=== PATIENT | female | born 1980 | race Caucasian/White ===

== ENCOUNTER 2018-09-24 12:03 | Emergency (ER) | payer OTHER ==
[~2018-09-24 12:03] MED LIST: ACET-3143 FT; FERR27TA3 PO; HYOS0.1287 PO; IBU600 PO; IBU800 PO; KET10 PO; LEV175 PO; LEVO112T43 PO; LEVO137T22 PO; LEVO150T72 PO; LORA10CA3 PO; MULT1TAB64 PO; PER PO; PREN-67 PO; PROG100C PO; [UNRECOGNIZED DRUG - REMARK] PO
[2018-09-24] MEDS ORDERED: LEVO-3 PO (12:24)
--- NOTE | 2018-09-24 12:25 | ER Report ---
History and Physical Time Seen By MD: 12:25 Hx. of Stated Complaint: right knee pain for 3 weeks that has been worsening over the weekend. HPI/ROS CHIEF COMPLAINT: Right knee pain 3 weeks HISTORY OF PRESENT ILLNESS: Patient is a 37-year-old female here with complaints of medial knee swelling which is been persistent for the past several weeks. She has attempted to take NSAIDs without significant relief of pain. She also describes paresthesias distal to the edema however perfusion is intact with good capillary refill. Patient is able to bear weight without issue. She does complain of tenderness at the site but has full range of motion of the knee. Denies fevers, recent trauma. Patient is hemodynamically stable at time of evaluation, in no acute distress, afebrile. REVIEW OF SYSTEMS: Constitutional: No fever, no chills. Eyes: No discharge. ENT: No sore throat. Cardiovascular: No chest pain, no palpitations. Respiratory: No cough, no shortness of breath. Gastrointestinal: No abdominal pain, no vomiting. Genitourinary: No hematuria. Musculoskeletal: + Right medial knee swelling Skin: No rashes. Neurological: Neurovascular exam intact distal to the point of maximum tenderness Allergies: Coded Allergies: Penicillins (Verified Allergy, Intermediate, UNKNOWN, 08/17/10) azithromycin (Verified Allergy, Unknown, 12/15/12) dicyclomine (Verified Allergy, Unknown, 12/15/12) Home Meds Active Scripts Prednisone (PREDNISONE) 50 Mg Tablet, 50 MG PO QDAY for 5 Days, #5 TAB Prov:MACEY GTZ DO 09/24/18 Reported Medications Levothyroxine Sodium (LEVOTHYROXINE SODIUM) 100 Mcg Tablet, 175 MCG PO QDAY, TAB 09/24/18 Discontinued Reported Medications Levothyroxine Sodium (SYNTHROID) 150 Mcg Tablet, 150 MCG PO QODAY 02/19/16 Levothyroxine Sodium (SYNTHROID) 137 Mcg Tablet, 137 MCG PO QODAY 02/19/16 Loratadine (CLARITIN) 10 Mg Capsule, 10 MG PO QDAY, CAPSULE 02/19/16 Multivitamin (MULTI VITAMIN DAILY) 1 Each Tablet, 1 EACH PO QDAY 02/19/16 Progesterone,Micronized (PROGESTERONE) 100 Mg Capsule, 100 MG PO Q4M, CAPSULE 02/19/16 Hx Smoking: No Smoking Status: Former Smoker Exposure to Second Hand Smoke?: No Hx Substance Use Disorder: No Constitutional Vital Sign - Last 24 Hours 09/24/18 09/24/18 12:21 13:53 Temp 98.0 Pulse 60 58 Resp 20 20 B/P (MAP) 114/80 94/61 (72) Pulse Ox 94 94 O2 Delivery Room Air Physical Exam General Appearance: The patient is alert, has no immediate need for airway protection and no signs of toxicity. No acute distress Eyes: Pupils equal and round no pallor or injection. ENT, Mouth: Mucous membranes are moist. Respiratory: There are no retractions, lungs are clear to auscultation. Cardiovascular: Regular rate and rhythm. Gastrointestinal: Abdomen is soft and non tender, no masses, bowel sounds normal. Neurological: No focal neurological findings Skin: Warm and dry, no rashes. Musculoskeletal: Neck is supple non tender. + Tenderness and mild edema without erythema of the right medial knee with full range of motion of the knee DIFFERENTIAL DIAGNOSIS: After history and physical exam differential diagnosis was considered for DVT, bursitis, effusion, abscess Medical Decision Making Data Points Result Diagram: 09/24/18 1248 09/24/18 1248 Laboratory Hematology Test 09/24/18 12:48 Red Blood Count 4.73 M/uL (4.17-5.56) Mean Corpuscular Volume 95.8 fL (80.0-96.0) Mean Corpuscular Hemoglobin 31.5 pg (26.0-33.0) Mean Corpuscular Hemoglobin Concent 32.8 g/dL (32.0-36.0) Red Cell Distribution Width 12.3 % (11.5-14.5) Mean Platelet Volume 6.8 fL (7.2-11.1) Neutrophils (%) (Auto) 62.9 % (39.4-72.5) Lymphocytes (%) (Auto) 28.7 % (17.6-49.6) Monocytes (%) (Auto) 5.2 % (4.1-12.4) Eosinophils (%) (Auto) 1.8 % (0.4-6.7) Basophils (%) (Auto) 1.4 % (0.3-1.4) Nucleated RBC Relative Count (auto) 0.0 /100WBC Neutrophils # (Auto) 3.6 K/uL (2.0-7.4) Lymphocytes # (Auto) 1.6 K/uL (1.3-3.6) Monocytes # (Auto) 0.3 K/uL (0.3-1.0) Eosinophils # (Auto) 0.1 K/uL (0.0-0.5) Basophils # (Auto) 0.1 K/uL (0.0-0.1) Nucleated RBC Absolute Count (auto) 0.00 K/uL Erythrocyte Sedimentation Rate 1 mm/HOUR (0-20) D-Dimer Quantitative (PE/DVT) < 0.27 ug/ml (0-0.50) Sodium Level 139 mmol/L (137-145) Potassium Level 4.5 mmol/L (3.5-5.0) Chloride Level 106 mmol/L (98-107) Carbon Dioxide Level 27 mmol/L (22-31) Blood Urea Nitrogen 13 mg/dl (7-18) Creatinine 0.80 mg/dl (0.52-1.04) Glomerular Filtration Rate Calc > 60.0 Random Glucose 90 mg/dl (75-110) Calcium Level 9.2 mg/dl (8.4-10.2) Total Bilirubin 0.3 mg/dl (0.2-1.3) Aspartate Amino Transf (AST/SGOT) 20 U/L (0-35) Alanine Aminotransferase (ALT/SGPT) 28 U/L (0-56) Alkaline Phosphatase 30 U/L (0-126) C-Reactive Protein 0.6 mg/dl (<1.0) Total Protein 6.9 g/dl (6.3-8.2) Albumin 3.9 g/dl (3.5-5.0) Chemistry Test 09/24/18 12:48 White Blood Count 5.8 k/uL (4.5-11.0) Red Blood Count 4.73 M/uL (4.17-5.56) Hemoglobin 14.9 g/dL (12.0-16.0) Hematocrit 45.4 % (34.0-47.0) Mean Corpuscular Volume 95.8 fL (80.0-96.0) Mean Corpuscular Hemoglobin 31.5 pg (26.0-33.0) Mean Corpuscular Hemoglobin Concent 32.8 g/dL (32.0-36.0) Red Cell Distribution Width 12.3 % (11.5-14.5) Platelet Count 234 K/uL (150-450) Mean Platelet Volume 6.8 fL (7.2-11.1) Neutrophils (%) (Auto) 62.9 % (39.4-72.5) Lymphocytes (%) (Auto) 28.7 % (17.6-49.6) Monocytes (%) (Auto) 5.2 % (4.1-12.4) Eosinophils (%) (Auto) 1.8 % (0.4-6.7) Basophils (%) (Auto) 1.4 % (0.3-1.4) Nucleated RBC Relative Count (auto) 0.0 /100WBC Neutrophils # (Auto) 3.6 K/uL (2.0-7.4) Lymphocytes # (Auto) 1.6 K/uL (1.3-3.6) Monocytes # (Auto) 0.3 K/uL (0.3-1.0) Eosinophils # (Auto) 0.1 K/uL (0.0-0.5) Basophils # (Auto) 0.1 K/uL (0.0-0.1) Nucleated RBC Absolute Count (auto) 0.00 K/uL Erythrocyte Sedimentation Rate 1 mm/HOUR (0-20) D-Dimer Quantitative (PE/DVT) < 0.27 ug/ml (0-0.50) Glomerular Filtration Rate Calc > 60.0 Calcium Level 9.2 mg/dl (8.4-10.2) Total Bilirubin 0.3 mg/dl (0.2-1.3) Aspartate Amino Transf (AST/SGOT) 20 U/L (0-35) Alanine Aminotransferase (ALT/SGPT) 28 U/L (0-56) Alkaline Phosphatase 30 U/L (0-126) C-Reactive Protein 0.6 mg/dl (<1.0) Total Protein 6.9 g/dl (6.3-8.2) Albumin 3.9 g/dl (3.5-5.0) Coagulation Test 09/24/18 12:48 D-Dimer Quantitative (PE/DVT) < 0.27 ug/ml EKG/Imaging Imaging Location: [facility] - [place] Patient: Eusebia Hirsch : 1980 Visit/Account:[id number] Date of Sevdann: 09/24/2018 US VENOUS LOWER EXT RT HISTORY: Right-sided leg pain and swelling for 3 weeks. ADDITIONAL HISTORY: None. COMPARISON: None. FINDINGS: The right common femoral, femoral, and popliteal veins are fully compressible and patent. The paired veins of the calf are normal. IMPRESSION: Normal right lower extremity Doppler ultrasound. No evidence of DVT. ED Course/Re-evaluation ED Course Patient is a previously healthy 37-year-old female here with complaints of several weeks of right medial knee pain and swelling without erythema, fevers or recent history of trauma. Patient was concerned that she might have a DVT which prompted ED evaluation today. CBC, CMP were unremarkable, d-dimer was negative making pulmonary embolism a less likely etiology. ESR and CRP were also negative. Duplex of the right lower extremity was negative for DVT. Patient was placed on a course of burst therapy of prednisone and advised to follow-up with her PCP in the upcoming days. Patient remained neurovascularly intact, able to a mbulate prior to discharge. Return precautions provided Decision to Disposition Date: Sep 24, 2018 Decision to Disposition Time: 13:45 Depart Departure Latest Vital Signs Vital Signs Date Time Temp Pulse Resp B/P (MAP) Pulse Ox O2 Delivery O2 Flow Rate FiO2 09/24/18 13:53 58 20 94/61 (72) 94 Room Air 09/24/18 12:21 98.0 Impression: Primary Impression: Right leg swelling Condition: Improved Disposition: HOME OR SELF-CARE Referrals: RASTA SPAULDING PA-C (PCP) New Scripts Prednisone (PREDNISONE) 50 Mg Tablet 50 MG PO QDAY for 5 Days, #5 TAB Prov: MACEY GTZ DO 09/24/18 Patient Instructions: Leg Edema (ED) Additional Instructions: Ultrasound imaging did not identify a blood clot today. Please take 50 mg of prednisone daily for the next 5 days for treatment of inflammation. Please follow-up with your family doctor and consider following up with orthopedics if this condition does not improve. Please return immediately if you develop worsening pain, fevers, redness, increased swelling, chest pain, shortness breath. He may continue to take NSAIDs such as naproxen or ibuprofen as needed for primary pain control. MACEY GTZ DO Sep 24, 2018 12:25
[2018-09-24 12:56] LABS: PLATELET COUNT, AUTOMATED 234 K/uL (150-450)
--- NOTE | 2018-09-24 13:25 | RADIOLOGY IMAGING REPORT ---
FACILITY: [facility] PATIENT NAME: Eusebia Hirsch : 1980 MR: [id number] V: [id number] EXAM DATE: ORDERING PHYSICIAN: MACEY GTZ TECHNOLOGIST: Location: [facility] Patient: Eusebia Hirsch : 1980 Visit/Account:[id number] Date of Sevice: 09/24/2018 US VENOUS LOWER EXT RT HISTORY: Right-sided leg pain and swelling for 3 weeks. ADDITIONAL HISTORY: None. COMPARISON: None. FINDINGS: The right common femoral, femoral, and popliteal veins are fully compressible and patent. The paired veins of the calf are normal. IMPRESSION: Normal right lower extremity Doppler ultrasound. No evidence of DVT. Report Dictated By: Akhil Hi at 09/24/2018 1:21 PM Report E-Signed By: Akhil Hi at 09/24/2018 1:22 PM WSN:[id number]
[2018-09-24] MEDS ORDERED: PRED50TA22 PO (13:48)
[2018-09-24 13:53] VITALS: BP 94/61
== END 2018-09-24 14:03 | disposition home or self-care (01) ==
LOC: ER 12:59
DX: M25.561 Pain in right knee (principal); M79.89 Other specified soft tissue disorders
CPT/HCPCS: 36415; 82040; 82247; 82310; 82374; 82435; 82565; 82947; 84075; 84132; 84155; 84295; 84450; 84460; 84520; 85025; 85379; 85651; 86140; 99284

== ENCOUNTER → 2018-10-26 | Outpatient (CLI) | payer OTHER ==
[~2018-10-26] MED LIST changes: +LEVO-3 PO; +PRED50TA22 PO
[2018-10-26 07:22] LABS: INR 1.02
== END ==
LOC: LAB 06:49
PROVIDERS: ATTEND Family Medicine
DX: G35 Multiple sclerosis (principal)
CPT/HCPCS: 36415; 85049; 85610; 85730

== ENCOUNTER → 2018-12-18 | Outpatient (CLI) | payer OTHER ==
[~2018-12-18] MED LIST changes: +DEXTROSE 5%(*) 100 ML BAG 100 ML IVPB PRN; +LIDOCAINE/SOD BICARB 8.4% SYR ID PRN; +NATALIZUMAB IVPB ONE; +NS 0.9% IVPB ONE; +NS(*) 0.9% 100 ML BAG 100 ML IVPB PRN; +NS(*) 0.9% 250 ML BAG 250 ML IVPB PRN
[2018-12-18 13:55] VITALS: BP 99/66
[2018-12-18 14:14] LABS: PLATELET COUNT, AUTOMATED 294 K/uL (150-450)
[2018-12-18 15:33] VITALS: BP 100/66
== END ==
LOC: SPU 13:39
PROVIDERS: ATTEND Psychiatry & Neurology Neurology
DX: G35 Multiple sclerosis (principal)
CPT/HCPCS: 85025; 96365; J2323; J7050; 82040; 82247; 82310; 82374; 82435; 82565; 82947; 84075; 84132; 84155; 84295; 84450; 84460; 84520

== ENCOUNTER 2019-03-26 09:00 | Outpatient (RCR) | payer OTHER ==
[2019-01-22 15:02] VITALS: BP 106/79
[2019-01-26 15:40] LABS: PLATELET COUNT, AUTOMATED 313 K/uL (150-450)
[2019-01-26] MEDS: LIDOCAINE/SOD BICARB 8.4% SYR ID PRN (16:00)
[2019-01-26] MEDS: NS(*) 0.9% 100 ML BAG 100 ML IVPB PRN (16:00)
[2019-01-26 16:05] VITALS: BP 133/67
[2019-01-26 17:09] VITALS: BP 105/67
[2019-02-23 09:00] VITALS: BP 111/65
[2019-02-23] MEDS: NS(*) 0.9% 100 ML BAG 100 ML IVPB PRN (09:15)
[2019-02-23] MEDS: LIDOCAINE/SOD BICARB 8.4% SYR ID PRN (09:15)
[2019-02-23 09:22] LABS: PLATELET COUNT, AUTOMATED 267 K/uL (150-450)
[2019-02-23 10:35] VITALS: BP 100/61
[~2019-03-26 09:00] MED LIST changes: -LIDOCAINE/SOD BICARB 8.4% SYR ID PRN; -NS(*) 0.9% 100 ML BAG 100 ML IVPB PRN
[2019-03-26 09:40] LABS: PLATELET COUNT, AUTOMATED 254 K/uL (150-450)
[2019-03-26] MEDS: LIDOCAINE/SOD BICARB 8.4% SYR ID PRN (09:48)
[2019-03-26] MEDS: NS(*) 0.9% 100 ML BAG 100 ML IVPB PRN (09:49)
[2019-03-26] MEDS ORDERED: NATALIZUMAB IVPB ONE (10:00)
[2019-03-26] MEDS ORDERED: NS 0.9% IVPB ONE (10:00)
[2019-03-26 10:13] VITALS: BP 114/71
[2019-03-26 11:03] VITALS: BP 98/54
== END 2019-04-19 ==
LOC: SPU 09:00
PROVIDERS: ATTEND Psychiatry & Neurology Neurology
DX: G35 Multiple sclerosis (principal)
CPT/HCPCS: 81025; 85025; 87798; 96365; J2323; J7050; 82040; 82247; 82310; 82374; 82435; 82565; 82947; 84075; 84132; 84155; 84295; 84450; 84460; 84520